=== PATIENT | male | born 1965 | race African-American/Black ===

== ENCOUNTER 2019-07-10 12:27 | Emergency (ER) | payer MEDICAID, OTHER ==
[~2019-07-10] VITALS: Ht 177.8 cm; Wt 75.0 kg
[2019-07-10 12:53] VITALS: BP 98/58
== END 2019-07-10 13:32 | disposition home or self-care (01) ==
LOC: ER 13:10
DX: F16.10 Hallucinogen abuse, uncomplicated (principal); F12.10 Cannabis abuse, uncomplicated; R00.0 Tachycardia, unspecified
CPT/HCPCS: 93005; 99283